=== PATIENT | female | born 1970 | race Caucasian/White ===

== ENCOUNTER 2016-07-25 17:11 | Emergency (ER) | payer OTHER | END 2016-07-25 20:40 | disposition home or self-care (01) | LOC: ER 17:11 | DX: S20.219A Contusion of unspecified front wall of thorax, initial encounter (principal); R10.9 Unspecified abdominal pain; V43.52XA Car driver injured in collision with other type car in traffic accident, initial encounter; Y92.413 State road as the place of occurrence of the external cause; F41.9 Anxiety disorder, unspecified; I95.9 Hypotension, unspecified; J44.9 Chronic obstructive pulmonary disease, unspecified; F17.210 Nicotine dependence, cigarettes, uncomplicated; R00.1 Bradycardia, unspecified | CPT/HCPCS: 71250; 72125; 93005; 99284; 99284-25 ==

== ENCOUNTER 2016-09-20 22:10 | Emergency (ER) | payer OTHER | END 2016-09-20 23:25 | disposition home or self-care (01) | LOC: ER 22:10 | DX: M25.522 Pain in left elbow (principal); M79.662 Pain in left lower leg; R07.81 Pleurodynia; W01.0XXA Fall on same level from slipping, tripping and stumbling without subsequent striking against object, initial encounter; Y92.009 Unspecified place in unspecified non-institutional (private) residence as the place of occurrence of the external cause; F17.210 Nicotine dependence, cigarettes, uncomplicated; Z88.1 Allergy status to other antibiotic agents; Z88.7 Allergy status to serum and vaccine; Z79.899 Other long term (current) drug therapy; Z79.891 Long term (current) use of opiate analgesic; Z79.1 Long term (current) use of non-steroidal anti-inflammatories (NSAID) | CPT/HCPCS: 71250; 73080; 73590; 96372; 99283-25 ==

== ENCOUNTER 2016-10-28 13:45 | Emergency (ER) | payer OTHER | END 2016-10-28 14:03 | disposition home or self-care (01) | LOC: ER 13:45 | DX: B85.0 Pediculosis due to Pediculus humanus capitis (principal) | CPT/HCPCS: 99282 ==